=== PATIENT | male | born 1995 | race Caucasian/White ===

== ENCOUNTER 2022-03-22 08:35 | Emergency (ER) | payer OTHER, SELFPAY ==
[2022-03-22 08:46] VITALS: BP 140/91; PULSE 100; RESP 16; TEMP 37.7; O2SAT 100
--- NOTE | 2022-03-22 08:47 | ED.URI ---
HPI - URI/Sore Throat General Chief Complaint: Upper Respiratory Infection Stated Complaint: COUGH/SORE THROAT/HEADACHE/TIRED/BODY ACHES/SWEATS Time Seen by Provider: 03/22/22 08:47 Source: patient Mode of arrival: ambulatory Limitations: no limitations History of Present Illness HPI Narrative: Patient presents today complaining of fever up to 101, chills, body aches, sweats, headache, cough, sore throat, fatigue. Symptoms began yesterday and have been worsening since onset. Denies shortness of breath. Denies any history of asthma or COPD. Currently rates pain 3/10 and has been taking Tylenol and cough medicine with mild relief. Related Data Home Medications Medication Instructions Recorded Confirmed No Home Medications 03/22/22 03/22/22 Allergies Allergy/AdvReac Type Severity Reaction Status Date / Time No Known Allergies Allergy Verified 03/22/22 08:50 Review of Systems Review of Systems: CONSTITUTIONAL: + body aches, fever, chills, sweats, fatigue EYES: Denies visual changes, redness, or discharge. ENT: Denies rhinorrhea, congestion, or otalgia.+ sore throat CARDIOVASCULAR: Denies chest pain, palpitations, or edema. RESPIRATORY: Denies dyspnea.+ cough GASTROINTESTINAL: Denies abdominal pain, nausea, vomiting, or diarrhea. GENITOURINARY: Denies dysuria or hematuria. SKIN: Denies rash, itching, or wounds. MUSCULOSKELETAL: Denies back pain, joint pain, or myalgia. NEUROLOGIC: Denies numbness, tingling, or weakness.+ headache PSYCH: Denies depression or anxiety. PMFSH Comments At time of signature, I have reviewed and agree with nursing past medical, surgical, social and family history unless otherwise noted. Please see nursing chart for further information. There is no relevant family history pertinent to the presenting complaint Exam Narrative: GENERAL: Mildly ill-appearing, well-nourished, and in no acute distress. HEAD: Normocephalic, atraumatic. EYES: EOMI. No redness or drainage. Conjunctivae normal. ENT: Mucous membranes pink and moist. Nares clear. No rhinorrhea. TMs normal bilaterally. Throat normal. Uvula midline. NECK: Normal AROM. Supple. No lymphadenopathy. CHEST: No respiratory distress. Clear to auscultation. HEART: Regular rate and rhythm. No murmur appreciated. Normal peripheral pulses. EXTREMITIES: Normal range of motion. No edema. SKIN: Warm, dry, no rash. Capillary refill normal. Normal skin turgor. NEURO: No focal deficits. Alert and oriented x3. Gait steady. PSYCH: Normal affect. No signs of depression or anxiety. Course Course Level of Care: Express Care Visit Vital Signs Vital signs: Vital Signs Temperature 100 F H 03/22/22 08:46 Pulse Rate 100 03/22/22 08:46 Respiratory Rate 16 03/22/22 08:46 Blood Pressure 140/91 H 03/22/22 08:46 Pulse Oximetry 100 03/22/22 08:46 Temperature 100 F H 03/22/22 08:46 Pulse Rate 100 03/22/22 08:46 Respiratory Rate 16 03/22/22 08:46 Blood Pressure 140/91 H 03/22/22 08:46 Pulse Oximetry 100 03/22/22 08:46 Reviewed. Pt has been instructed to follow up with his PCP regarding his elevated blood pressure today. MDM - URI/Sore Throat MDM Narrative Medical decision making narrative: Based on patient's symptoms, will perform strep screen, COVID-19 swab, and influenza swab. All labs are negative. Patient's symptoms are consistent with viral infection. No prescription indicated at this time. Differential Diagnosis Differential diagnosis: Likely upper respiratory infection, viral infection, influenza and other (COVID strep throat) Lab Data Attestation: I reviewed the patient's lab results. Lab results narrative: COVID-19 negative Labs: Influenza A Screen Negative Reference Range: Negative Influenza B Screen Negative Reference Range: Negative Strep Screen
== END 2022-03-22 09:30 | disposition home or self-care (01) ==
PROVIDERS: Emergency Provider Nurse Practitioner
DX: B34.9 Viral infection, unspecified (principal); Z20.822 Contact with and (suspected) exposure to COVID-19
CPT/HCPCS: 87081; 87426; 87804; 87880; 99213; C9803; G0463

== ENCOUNTER 2024-05-25 08:09 | Emergency (ER) | payer OTHER, SELFPAY ==
[2024-05-25 08:26] VITALS: BP 142/84; PULSE 94; RESP 16; TEMP 36.8; O2SAT 100
--- NOTE | 2024-05-25 08:36 | ED_ITS ---
HPI - URI/Sore Throat General Chief Complaint: Upper Respiratory Infection Stated Complaint: Sore Throat Time Seen by Provider: 05/25/24 08:36 Source: patient, RN notes reviewed and old records reviewed Mode of arrival: ambulatory Limitations: no limitations History of Present Illness HPI Narrative: 29-year-old male who presents to [facility] with complaints of sore throat, fevers with body aches, some clear nasal drainage, headache and some dry cough for the past 6 days with symptoms increasing in the past 3 days. Patient reports that he had fevers noted last night and took Ibuprofen at 0100 without much relief in his sore throat but fever decreased. Patient states that son is starting now to get ill symptoms also. MD elicited complaint: fever, sore throat, rhinorrhea, nasal congestion and other (body aches) Onset (ago): day(s) (6 days with increased symptoms for past 3 days.) Pain scale (0-10): 4 Description of mucous: clear Able to tolerate fluids by mouth: Yes Exacerbating factors: swallowing Treatments prior to arrival: ibuprofen Related Data Home Medications ?Medication ?Instructions ?Recorded ?Confirmed ?Last Taken ?Type No Home Medications 03/22/22 03/22/22 Unknown History Allergies Allergy/AdvReac Type Severity Reaction Status Date / Time No Known Allergies Allergy Verified 05/25/24 08:31 Review of Systems Review of Systems: CONSTITUTIONAL: Reports malaise, chills, sweats, or fever. EYES: Denies visual changes, redness, or discharge. ENT: Reports rhinorrhea, congestion, sinus pain,no otalgia and positive for sore throat. CARDIOVASCULAR: Denies chest pain, palpitations, or edema. RESPIRATORY: Reports dry cough.? Denies dyspnea. GASTROINTESTINAL: Denies abdominal pain, nausea, vomiting, diarrhea SKIN: Denies rash or itching. MUSCULOSKELETAL: Reports myalgia. NEUROLOGIC:Reports headache. All systems reviewed & are unremarkable except as noted in HPI and below PMFSH Past Medical History Medical History COVID-2021 Social History Social History Smoking status: Never smoker Alcohol intake: current Alcohol use details: social Substance use type: does not use Living arrangements: with family Gender identity (if verbalized by the patient): Male Comments At time of signature, agree with nursing past medical, surgical, social and family history. There is no relevant family history pertinent to the presenting complaint Exam Narrative: GENERAL: Well-appearing, well-nourished, and in no acute distress. HEAD: Normocephalic EYES: PERRLA, conjunctivae clear ENT: Nares clear, turbinates edematous and erythematous, clear discharge frontal headache, Mucous membranes moist. TM pearly cabello with dull light reflex bilaterally; no tragal tenderness. Oropharynx erythematous without lesions. Tonsils red not enlarged and without exudate, no drooling, no hoarseness, no trismus, uvula midline.post nasal drainage NECK: Supple. No lymphadenopathy CHEST: Clear to auscultation, breath sounds equal. No wheezing, rhonchi, rales, or stridor. No respiratory distress, speaks in full sentences.dry cough SAO2 100% on room air HEART: Regular rate and rhythm. No murmur heard. SKIN: Warm, dry, no rash. NEURO: Alert and oriented x3. PSYCH: Normal mood and affect Course Course Emergency Course: Patient is aware of diagnosis, understands and agrees to treatment plan.? Antici patory guidance given.? Patient agrees to follow-up as directed and is aware of reasons to seek care at the emergency department. Portions of this record may have been created with voice recognition software Level of Care: Express Care Visit Vital Signs Vital signs: Vital Signs Temperature 36.8 C 05/25/24 08:26 Pulse Rate 94 05/25/24 08:26 Respiratory Rate 16 05/25/24 08:26 Blood Pressure 142/84 H 05/25/24 08:26 Pulse Oximetry 100 05/25/24 08:26 Temperature 36.8 C 05/25/24 08:26 Pulse Rate 94 05/25/24 08:26 Respiratory Rate 16 05/25/24 08:26 Blood Pressure 142/84 H 05/25/24 08:26 Pulse Oximetry 100 05/25/24 08:26 Reviewed MDM - URI/Sore Throat MDM Narrative Medical decision making narrative: Differential diagnosis considered: Lopez virus, strep pharyngitis, allergic rhinitis, upper respiratory tract infection, sinusitis, rhinosinusitis, nasopharyngitis. viral pharyngitis, otitis media, otitis externa, pneumonia, bronchitis, viral cough syndrome, viral syndrome, and influenza.? Exam findings show no acute concerns or changes; patient is non-toxic appearing and is in no distress.? Patient is appropriate for outpatient treatment and follow-up. Differential Diagnosis Differential diagnosis: Likely upper respiratory infection, sinusitis, viral infection, pharyngitis and other (strep pharyngitis) Medical Records Attestation: I reviewed the patient's medical records. Lab Data Attestation: I reviewed the patient's lab results. Lab results narrative: Influenza A negative, Influenza B negative COVID antigen negative strep screen negative, culture sent Labs: Lab Results 05/25/24 05/25/24 Range/Units 08:35 08:41 POC Influenza A Ag Negative (Negative) POC Influenza B Ag Negative (Negative) POC SARS CoV-2 Ag Negative (Negative) POC Grp A Strep Screen Negative (Negative) reviewed Critical Care Time Critical Care Time Critical Care Time: No Discharge Plan Discharge Clinical Impression: Rhinosinusitis Pharyngitis Qualifiers: Pharyngitis/tonsillitis etiology: unspecified etiology Qualified Code(s): J02.9 - Acute pharyngitis, unspecified Patient Disposition: Home, Self-Care Condition: Stable Instructions: Antibiotic Form, Pharyngitis (ED), Rhinosinusitis (ED) Additional Instructions: Increase fluids especially juices and water [id number] cough and cold medicine of your choice for your symptoms Zyrtec Claritin or Sofia daily plain Sudafed once daily Mucinex daily for cough and congestion heat to the face 20-30 minutes 4-6 times a day for pain Salt water gargles, throat lozenges or throat sprays as desired Antibiotic as directed--finished the medication If your symptoms persist, change or worsen significantly before you can contact your personal physician then please, without delay, go to the emergency department for further evaluation. Follow-up with PCP in 7-10 days or sooner if needed Follow up with PCP soon in regards to your blood pressure which is elevated above threshold for referral. Blood pressure above 120/80 may indicate pre- hypertension. 142/84 Tylenol or ibuprofen for any fever or pain Patient Language: [place] Prescriptions: New amoxicillin 875 mg tablet 875 mg PO Q12H Qty: 20 0RF No Action No Home Medications Follow-up/Referrals: PHYSICIAN,[employer]BLER [Primary Care Provider] - Time of Disposition: 08:52 Quality Mel Coma Scale Eyes: Open Verbal: Oriented and Alert Motor: Follows Commands [place] Coma Total Score: 15
[2024-05-25 08:38] LABS: EDSTREPNEGPOS1 Negative (Negative)
[2024-05-25 08:44] LABS: EDCOVIDSCREEN Negative (Negative); EDINFLUASCREEN Negative (Negative); EDINFLUBSCREEN Negative (Negative)
== END 2024-05-25 08:55 | disposition home or self-care (01) ==
PROVIDERS: Emergency Provider Registered Nurse
DX: J32.9 Chronic sinusitis, unspecified (principal); J02.9 Acute pharyngitis, unspecified; Z20.822 Contact with and (suspected) exposure to COVID-19; Z86.16 Personal history of COVID-19
CPT/HCPCS: 87081; 87426; 87804; 87880; 99213; G0463